=== PATIENT | female | born 1985 | race Hispanic/Latino ===

== ENCOUNTER 2022-04-27 06:10 | Emergency (ER) | payer OTHER ==
[~2022-04-27] VITALS: Ht 160 cm; Wt 105.2 kg
[2022-04-27 06:17] VITALS: BP 138/90
[2022-04-27] MEDS ORDERED: [UNRECOGNIZED DRUG - CODE] PO (07:40)
[2022-04-27] MEDS ORDERED: FLUT16H NASAL (07:40)
[2022-04-27] MEDS ORDERED: LORA10TA7 PO (07:40)
[2022-04-27] MEDS ORDERED: DEXAMETHASONE SOD PHOSPHATE 4 MG/ML 1ML VIAL IM ONE (08:00)
== END 2022-04-27 08:03 | disposition home or self-care (01) ==
LOC: EDH 06:10
DX: U07.1 COVID-19 (principal)
CPT/HCPCS: 87635; 87804 ×2; 87880; 96372; 99283; C9803; J1100